=== PATIENT | female | born 1945 | race Caucasian/White ===

== ENCOUNTER → 2016-03-17 | Outpatient (CLI) | payer OTHER ==
[~2016-03-17] MED LIST: IBUP-1428 PO
[2016-03-17 12:16] LABS: BASO % 0.3 %; BASO ABS # 0.02 K/uL (0-0.2); COMPLETE YES; EOS % 2.4 %; HEMATOCRIT 42.8 % (37-47); IG% 0.2 %; LYMPH % 30.9 %; LYMPH ABS # 1.91 K/uL (1.2-3.4); MEAN CELL VOLUME 94.9 fL (80-100); MEAN CORPUSCULAR HEMOGLOBIN 31.5 pg (25-34); MEAN CORPUSCULAR HGB CONC 33.2 g/dl (32-36); MEAN PLATELET VOLUME 10.7 fL (7.4-10.4); MONO % 7.1 %; NEUT % 59.1 %; PLATELET COUNT 269 K/uL (130-400); RED BLOOD COUNT 4.51 M/uL (4.2-5.4); WHITE BLOOD COUNT 6.19 K/uL (4.8-10.8)
[2016-03-17 13:56] LABS: LYME DISEASE AB IGG NEG (NEG)
[2016-03-17 14:01] LABS: LYME DISEASE AB IGM NEG (NEG)
== END | disposition home or self-care (01) ==
LOC: C.LAB 11:04
PROVIDERS: ATTEND Surgery
DX: H91.20 Sudden idiopathic hearing loss, unspecified ear (principal)

== ENCOUNTER → 2016-03-30 | Outpatient (CLI) | payer OTHER ==
[~2016-03-30] MED LIST changes: +GADAVIST IV PRN
--- NOTE | 2016-03-30 10:34 | DIAGNOSTIC IMAGING REPORT ---
MRI OF THE BRAIN COMBO INTERNAL AUDITORY CANAL PROTOCOL CLINICAL HISTORY: Left-sided hearing loss. COMPARISON STUDY: No priors. TECHNIQUE: MRI of the brain was performed utilizing various T1 and T2-weighted sequences in the axial, sagittal, and coronal planes. Contrast-enhanced sequences were acquired following the administration of 14 cc of Gadavist. Additional high-resolution imaging was performed through the skull base both pre and post contrast to further assess the internal auditory canals. FINDINGS: Brain parenchyma: There is age-related involutional change noting mild subcortical and periventricular microangiopathic disease. There is no hemorrhage or mass effect. There is no restricted diffusion to suggest acute ischemia. No enhancing mass lesion is identified on the postcontrast images. Fofana-white matter differentiation is preserved. No extra-axial fluid collection is seen. The cerebellar tonsils are normal in configuration. Ventricles, sulci, and cisterns: Prominent secondary to involutional change. Internal auditory canals: There is no enhancing mass lesion identified in the cerebellopontine angle. No mass is identified along the course of the internal auditory canals. There is mild thickening with asymmetric enhancement involving the proximal left facial nerve. This is best seen on axial high-resolution image #5 and #6. The intracanalicular portion of the left 7th cranial nerve does not appear to enhance. The middle ear structures are normal as visualized. Pituitary and sella: Partially empty sella is incidentally noted. Intracranial vasculature: Normal flow voids are maintained at the skull base. Orbits: The bony orbits are grossly intact. Orbital contents are normal in appearance. Sinuses and mastoids: Clear. Calvarium: Unremarkable. Cervical cord: Partially visualized cervical spinal cord is normal in morphology and signal intensity. IMPRESSION: 1. There is no hemorrhage, enhancing mass, or evidence of acute ischemia. 2. No enhancing mass lesion is identified in the cerebellopontine angle or lung course of the internal canals. 3. There is mild thickening with asymmetric enhancement involving the proximal left facial nerve. This is of indeterminate significance and clinical correlation will be required. Electronically signed by: Sarbjit Andujar M.D. 03/30/2016 10:33 AM Dictated Date/Time: 03/30/2016 10:20 AM
== END | disposition home or self-care (01) ==
LOC: C.MRIBC 09:07
PROVIDERS: ATTEND Surgery
DX: H91.20 Sudden idiopathic hearing loss, unspecified ear (principal)

== ENCOUNTER → 2016-04-21 | Outpatient (CLI) | payer OTHER ==
[~2016-04-21] MED LIST changes: -GADAVIST IV PRN
--- NOTE | 2016-04-21 09:41 | DIAGNOSTIC IMAGING REPORT ---
CHEST 2 VIEWS ROUTINE CLINICAL HISTORY: Cough. Wheezing. COMPARISON STUDY: 09/20/2013 FINDINGS: The cardiac and mediastinal contours are normal. There is no evidence of focal pulmonary consolidation. There is no evidence of failure. No pleural effusions are visualized.[ Degenerative changes are present within the dorsal spine IMPRESSION: No active disease in the chest. Electronically signed by: David Mayer M.D. 04/21/2016 9:40 AM Dictated Date/Time: 04/21/2016 9:40 AM
== END | disposition home or self-care (01) ==
LOC: C.RADBBURG 09:28
PROVIDERS: ATTEND Internal Medicine Pulmonary Disease
DX: R06.2 Wheezing (principal)

== ENCOUNTER → 2016-04-26 | Outpatient (CLI) | payer OTHER ==
[~2016-04-26] VITALS: Ht 165.1 cm; Wt 141.5 kg
[2016-04-26 14:02] VITALS: BP 142/61; PULSE 118; Ht 165.1 cm; Wt 141.5 kg
== END | disposition home or self-care (01) ==
LOC: C.NEUR 13:27
PROVIDERS: ATTEND Internal Medicine Pulmonary Disease
DX: G47.30 Sleep apnea, unspecified (principal)

== ENCOUNTER → 2016-10-01 | Outpatient (CLI) | payer OTHER ==
[2016-10-01 12:15] LABS: BASO % 0.5 %; BASO ABS # 0.03 K/uL (0-0.2); COMPLETE YES; EOS % 4.7 %; HEMATOCRIT 45.6 % (37-47); IG% 0.3 %; LYMPH % 35.7 %; MEAN CELL VOLUME 94.6 fL (80-100); MEAN CORPUSCULAR HGB CONC 30.7 g/dl (32-36); MEAN PLATELET VOLUME 11.3 fL (7.4-10.4); MONO % 8.4 %; NEUT % 50.4 %; PLATELET COUNT 277 K/uL (130-400); RED BLOOD COUNT 4.82 M/uL (4.2-5.4); WHITE BLOOD COUNT 6.17 K/uL (4.8-10.8)
[2016-10-01 12:46] LABS: ALT/SGPT 38 U/L (12-78); BLOOD UREA NITROGEN 23 mg/dl (7-18); BUN/CREATININE RATIO 27.3 (10-20); CALCIUM 9.2 mg/dl (8.5-10.1); CARBON DIOXIDE 27 mmol/L (21-32); CHLORIDE 105 mmol/L (98-107); CHOLESTEROL 178 mg/dl (0-200); CREATININE 0.84 mg/dl (0.60-1.20); GLUCOSE 100 mg/dl (70-99); POTASSIUM 4.2 mmol/L (3.5-5.1); SODIUM 139 mmol/L (136-145); TRIGLYCERIDES 170 mg/dl (0-150); VERY LOW DENSITY LIPOPROT CALC 34 mg/dl
[2016-10-01 12:50] LABS: ALB/GLOB RATIO 0.9 (0.9-2); ALKALINE PHOSPHATASE 118 U/L (45-117); AST/SGOT 34 U/L (15-37); CHOLESTEROL/HDL RATIO 3.4; HDL CHOLESTEROL 52 mg/dl; LDL CHOLESTEROL CALCULATED 92 mg/dl
== END | disposition home or self-care (01) ==
LOC: C.LAB 10:49
PROVIDERS: ATTEND Nurse Practitioner Family
DX: I10 Essential (primary) hypertension (principal); E78.1 Pure hyperglyceridemia; E66.9 Obesity, unspecified

== ENCOUNTER → 2016-11-08 | Outpatient (CLI) | payer OTHER ==
--- NOTE | 2016-11-26 08:48 | CODING QUERY MEDICAL NECESSITY ---
SUPPORTING DIAGNOSIS NEEDED Debra KAPOOR, A supporting diagnosis is required for the test/procedure performed on this patient in order for us to be reimbursed by the patient's insurance. Please provide a supporting diagnosis for the following test/procedure listed below next to the test name along with your signature. *If there is no additional diagnosis for this patient that would support the following test/procedure please document that below next to the test/procedure. Test(s)/Procedure(s) that require a supporting diagnosis: * ([id number]) DXA BONE DENSITY, AXIAL DIAGNOSIS: DATE OF SERVICE: 11/08/16 Provider Signature: Date: Thank you Nick Loving [facility] Information Management Once completed, please kindly fax back to [phone] For questions please call [phone]
== END | disposition home or self-care (01) ==
LOC: C.MAMM 12:55
PROVIDERS: ATTEND Nurse Practitioner Family
DX: Z13.820 Encounter for screening for osteoporosis (principal)

== ENCOUNTER → 2017-01-26 | Outpatient (CLI) | payer OTHER ==
[2017-01-26 12:47] LABS: ESTIMATED AVERAGE GLUCOSE 117 mg/dl; HA1C FLAG Normal (Normal)
[2017-01-26 12:56] LABS: BLOOD UREA NITROGEN 24 mg/dl (7-18); CALCIUM 9.4 mg/dl (8.5-10.1); CARBON DIOXIDE 30 mmol/L (21-32); CHLORIDE 103 mmol/L (98-107); CREATININE 0.79 mg/dl (0.60-1.20); GLUCOSE 85 mg/dl (70-99); POTASSIUM 4.1 mmol/L (3.5-5.1); SODIUM 137 mmol/L (136-145)
== END | disposition home or self-care (01) ==
LOC: C.LAB 09:58
PROVIDERS: ATTEND Nurse Practitioner Family
DX: R73.9 Hyperglycemia, unspecified (principal)

== ENCOUNTER → 2017-05-24 | Outpatient (CLI) | payer OTHER ==
[2017-05-24 16:09] LABS: INFLUENZA B ANTIGEN Neg for Influ B (NEG)
--- NOTE | 2017-05-24 16:09 | DIAGNOSTIC IMAGING REPORT ---
TWO VIEW CHEST CLINICAL HISTORY: Fever of unknown origin. FINDINGS: PA and lateral chest radiographs are compared to study dated 04/21/2016 and correlated with chest CT dated 07/29/2015. The PA view is mildly degraded by patient rotation. The heart is mildly enlarged and there is atherosclerotic calcification of the thoracic aorta. The pulmonary vasculature is noncongested. Chronic interstitial thickening is similar to previous. No airspace consolidation or pleural effusion is identified. There is no pneumothorax. The skeletal structures are osteopenic. Degenerative change is noted throughout the thoracic spine. IMPRESSION: Mild cardiomegaly with no acute cardiopulmonary abnormality. Electronically signed by: Sarbjit Andujar M.D. 05/24/2017 4:07 PM Dictated Date/Time: 05/24/2017 4:06 PM
== END | disposition home or self-care (01) ==
LOC: C.RAD 15:15
PROVIDERS: ATTEND Nurse Practitioner Family
DX: R50.9 Fever, unspecified (principal)

== ENCOUNTER → 2017-10-14 | Outpatient (CLI) | payer OTHER ==
[2017-10-14 12:52] LABS: BASO % 0.3 %; BASO ABS # 0.02 K/uL (0-0.2); EOS % 3.8 %; EOS ABS # 0.24 K/uL (0-0.5); HEMATOCRIT 43.4 % (37-47); IG# 0.01 K/uL (0.00-0.02); LYMPH % 35.2 %; LYMPH ABS # 2.24 K/uL (1.2-3.4); MEAN CELL VOLUME 94.1 fL (80-100); MEAN CORPUSCULAR HEMOGLOBIN 30.4 pg (25-34); MEAN CORPUSCULAR HGB CONC 32.3 g/dl (32-36); MONO % 8.8 %; MONO ABS # 0.56 K/uL (0.11-0.59); NEUT % 51.7 %; PLATELET COUNT 288 K/uL (130-400); RED CELL DISTRIBUTION WIDTH CV 13.9 % (11.5-14.5); RED CELL DISTRIBUTION WIDTH SD 47.3 fL (36.4-46.3); WHITE BLOOD COUNT 6.37 K/uL (4.8-10.8)
[2017-10-14 13:09] LABS: ALBUMIN 3.6 gm/dl (3.4-5.0); ALKALINE PHOSPHATASE 102 U/L (45-117); ALT/SGPT 30 U/L (12-78); AST/SGOT 26 U/L (15-37); BLOOD UREA NITROGEN 16 mg/dl (7-18); CALCIUM 8.9 mg/dl (8.5-10.1); CARBON DIOXIDE 29 mmol/L (21-32); CHOLESTEROL 167 mg/dl (0-200); CREATININE 0.77 mg/dl (0.60-1.20); GLUCOSE 84 mg/dl (70-99); LDL CHOLESTEROL CALCULATED 80 mg/dl; POTASSIUM 4.2 mmol/L (3.5-5.1); SODIUM 140 mmol/L (136-145); TOTAL PROTEIN 7.2 gm/dl (6.4-8.2)
[2017-10-14 13:13] LABS: HEMOGLOBIN A1C 5.8 % (4.5-5.6)
[2017-10-14 14:02] LABS: CREATININE RANDOM URINE 38.5 mg/dl
== END | disposition home or self-care (01) ==
LOC: C.LAB 10:16
PROVIDERS: ATTEND Nurse Practitioner Family
DX: I10 Essential (primary) hypertension (principal); E78.1 Pure hyperglyceridemia; E66.9 Obesity, unspecified; F32.9 Major depressive disorder, single episode, unspecified; R73.9 Hyperglycemia, unspecified